=== PATIENT | male | born 1960 | race Caucasian/White ===

== ENCOUNTER 2025-02-02 18:38 | Emergency (ER) | payer MEDICARE, OTHER, SELFPAY ==
[2025-02-02] VITALS (7 sets, daily range): BP systolic 135–151; BP diastolic 78–83; BMI 36.8
--- NOTE | 2025-02-02 19:16 | ED.GENMED ---
History of Present Illness
<Sangeeta Calles PA-C - Last Filed: 02/02/25 22:42>
General
Chief Complaint: Skin Problem
Source: patient and significant other
Exam Limitations: none
Time Seen by Provider: 02/02/25 18:56
History of Present Illness
History of Present Illness:
Patient is a 64-year-old male with past medical history of ruptured brain aneurysm repaired at [facility], polycystic kidney disease status post kidney transplant in 2015 at [facility], CAD status postcardiac stenting, hypertension, hyperlipidemia, hernia
repair, who presents to the emergency department from home accompanied by his for evaluation of a rash to the bilateral lower extremities. Patient reports that the rash started as a small coin sized lesion to the right lower extremity. Over
the course of the day yesterday and today, the rash progressed on the right lower extremity and then started to affect the left lower extremity. Patient denies that it is painful or itchy. Patient has noted some bilateral lower extremity edema but
states that this has been present for a few months. He reports that he did see the primary care provider for the swelling and they were not concerned about it. Patient reports that he has never had a rash like this before. He denies any rash
anywhere else. Patient notes that he is on prednisone and tacrolimus for his transplant. He reports that he is on 81 mg of aspirin but denies any other anticoagulation. Patient denies recent fevers, chills, chest pain, shortness of breath,
abdominal pain, nausea, vomiting, change in his bowel habits, change in his urinary habits. Patient denies that he has been on his feet for longer periods of time than usual.
Past History
<Sangeeta aClles PA-C - Last Filed: 02/02/25 22:42>
Past History
ED Past Medical History: CAD, HTN, Hypercholesterolemia and Other (Subarachnoid hemorrhage with aneurysm, polycystic kidneys with kidney transplant, coronary artery disease with stent placement)
ED Past Surgical History: Cardiac and Urological
Social History
Tobacco: Non-smoker
Personal:
Living: with family
Review of Systems
<Sangeeta Calles PA-C - Last Filed: 02/02/25 22:42>
Review of Systems
Allergies reviewed?: Yes
All Other Systems: ROS reviewed and negative except as documented in HPI and ROS
Constitutional: Reports no symptoms
EENT: Reports no symptoms
Respiratory: Reports no symptoms
Cardiac: Reports no symptoms
ABD/GI: Reports no symptoms
: Reports no symptoms
Musculoskeletal: Reports no symptoms
Skin: Reports rash; Denies itching
Neurological: Reports no symptoms
Endocrine: Reports no symptoms
Hematologic/Lymphatic: Reports no symptoms
Psychiatric: Reports no symptoms
Phy Exam
<Sangeeta Calles PA-C - Last Filed: 02/02/25 22:42>
General Physical Exam
General Presentation: well appearing and no apparent distress
General Skin: warm and dry
General Habitus: normal
General Mental: alert
General Hydration: appears well hydrated
ENT Exam
ENT Exam: EOMI, pharynx normal, neck supple and normocephalic
Eye Exam
Eye Exam: PERRL, cornea clear and conjunctiva normal
Cardiovascular Exam
Cardiovascular Exam: regular rate/rhythm, no murmur, normal peripheral pulses and other (trace ankle and pedal edema)
Pulmonary Exam
Pulmonary Exam: lungs clear, no respiratory distress, no rales, no crackles, no rhonchi, no stridor, no wheezing and no cough
Gastrointestinal Exam
Gastrointestinal Exam: normal bowel sounds, non tender, soft, no organomegaly, no pulsatile mass and non distended
Neurological Exam
Neurological Exam: alert, oriented x3, no motor deficits and speech normal
Musculoskeletal Exam
Musculoskeletal Exam: full ROM and edema (mild pretibial, ankle, and pedal edema)
Skin Exam
Skin Exam: normal color, warm/dry and other (petechial rash to the bilateral lower extremities, R>L, non-blanching, no ttp, )
Psychiatric Exam
Psychiatric Exam: normal mood/affect
Course
<Sangeeta Calles PA-C - Last Filed: 02/02/25 22:42>
Orders/Labs/Results
Orders:
Orders
02/02/25 19:41
CRP [C-Reactive Protein] Urgent
Complete Blood Count/With Diff Urgent
Comprehensive Metabolic Panel Urgent
ESR [Erythrocyte Sed Rate] Urgent
02/02/25 21:22
Protein/Creat Ratio (Random) Urgent
Date Specimen was Collected: 02/02/25
Time Specimen was Collected: 19:44
Comment: ADD ON
Urinalysis Reflex To Culture Urgent
Date Specimen was Collected: 02/02/25
Time Specimen was Collected: 19:44
Urine Microscopic Reflex Cult Urgent
02/02/25 21:46
Add On- LAB Urgent
Comments:: add on
Tests Added?: urine protein/creat ratio (random)
02/02/25 22:03
US Periph Venous LOWER Ext Yash Urgent
Comment:
Reason For Exam: b/l lower extremity edema, rash
02/02/25 23:16
Prednisone [Deltasone] 60 mg PO NOW STA
Abnormal Lab Results
02/02/25 02/02/25
19:41 21:22
MPV 11.4 H fL
(7.4-10.4)
Chloride 109 H mmol/L
(98-107)
Glucose 173 H mg/dl
(70-99)
Alkaline Phosphatase 35 L U/L
(38-126)
Urine Albumin (Reflex) 1+ A
(Neg - Trace)
02/02/25 19:41
02/02/25 19:41
Vital Signs
Initial and Last Documented VS:
Initial Vital Signs
Temp Pulse Resp BP Pulse Ox
98.0 F 74 20 135/80 95
02/02/25 18:48 02/02/25 18:48 02/02/25 18:48 02/02/25 18:48 02/02/25 18:48
Last Documented Vital Signs
Temp Pulse Resp BP Pulse Ox
98.0 F 71 18 146/81 92
02/02/25 18:48 02/02/25 19:32 02/02/25 19:32 02/02/25 22:00 02/02/25 23:05
<Maximilian Jerez PA-C - Last Filed: 02/02/25 23:18>
Orders/Labs/Results
Orders:
Orders
02/02/25 19:41
CRP [C-Reactive Protein] Urgent
Complete Blood Count/With Diff Urgent
Comprehensive Metabolic Panel Urgent
ESR [Erythrocyte Sed Rate] Urgent
02/02/25 21:22
Protein/Creat Ratio (Random) Urgent
Date Specimen was Collected: 02/02/25
Time Specimen was Collected: 19:44
Comment: ADD ON
Urinalysis Reflex To Culture Urgent
Date Specimen was Collected: 02/02/25
Time Specimen was Collected: 19:44
Urine Microscopic Reflex Cult Urgent
02/02/25 21:46
Add On- LAB Urgent
Comments:: add on
Tests Added?: urine protein/creat ratio (random)
02/02/25 22:03
US Periph Venous LOWER Ext Yash Urgent
Comment:
Reason For Exam: b/l lower extremity edema, rash
02/02/25 23:16
Prednisone [Deltasone] 60 mg PO NOW STA
Abnormal Lab Results
02/02/25 02/02/25
19:41 21:22
MPV 11.4 H fL
(7.4-10.4)
Chloride 109 H mmol/L
(98-107)
Glucose 173 H mg/dl
(70-99)
Alkaline Phosphatase 35 L U/L
(38-126)
Urine Albumin (Reflex) 1+ A
(Neg - Trace)
02/02/25 19:41
02/02/25 19:41
Vital Signs
Initial and Last Documented VS:
Initial Vital Signs
Temp Pulse Resp BP Pulse Ox
98.0 F 74 20 135/80 95
02/02/25 18:48 02/02/25 18:48 02/02/25 18:48 02/02/25 18:48 02/02/25 18:48
Last Documented Vital Signs
Temp Pulse Resp BP Pulse Ox
98.0 F 71 18 146/81 92
02/02/25 18:48 02/02/25 19:32 02/02/25 19:32 02/02/25 22:00 02/02/25 23:05
<Sangeeta Calles PA-C - Last Filed: 02/02/25 22:42>
*Pulse Oximetry
SaO2: 95
Oxygen Mode of Delivery: Room air
<Maximilian Jerez PA-C - Last Filed: 02/02/25 23:18>
*Pulse Oximetry
Patient hypoxic: no
*Critical Care Note
Total Time (30-74mins, 75-104mins- exclusive of procedures): Not Applicable
<Sangeeta Calles PA-C - Last Filed: 02/02/25 22:42>
Update Note
Update Note:
64-year-old male with extensive past medical history presents to the emergency department accompanied by his from home for evaluation of a rash to his bilateral lower extremities that started yesterday. Patient reports that started on the
right but then moved to the left. Patient and also note several week history of lower extremity edema. Patient denies any pain, denies any additional symptoms today. On arrival, patient's vital signs are stable, he is afebrile. On exam,
patient is very well-appearing, he is no acute distress, he has mild lower extremity edema bilaterally with a petechial rash. Case was discussed with ED attending who also evaluated the patient. Labs were obtained and are reassuring, patient does
not have an elevation of his inflammatory markers, normal hemoglobin, normal platelet counts. Case was discussed with rheumatology, Dr. Fernandez who also reviewed images of the patient's labs. 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
vasculitis for which she would recommend a short course of 60 mg of prednisone orally or IV equivalent. I then spoke with Saira Alba, kidney facilities coordinator at [facility] who was in contact with the loom fixer on-call. They recommend
checking a urinalysis for blood, urinalysis does not demonstrate blood. They also recommend checking a urine protein/creatinine ratio. However, they state that we do not need to wait for these results and are comfortable with initiating a short
course of 60 mg of prednisone daily for 4 days. I spoke with the patient and his regarding these recommendations. They are also concerned for DVT in the patient's lower extremities, will check a Doppler. If negative, anticipate the patient
can be discharged on a short course of prednisone with close outpatient rheumatology follow-up and strict return precautions. Plan was discussed with the patient who expressed understanding and agreed.
<Maximilian Jerez PA-C - Last Filed: 02/02/25 23:18>
Update Note
Update Note:
64-year-old male with extensive past medical history presents to the emergency department accompanied by his from home for evaluation of a rash to his bilateral lower extremities that started yesterday. Patient reports that started on the
right but then moved to the left. Patient and also note several week history of lower extremity edema. Patient denies any pain, denies any additional symptoms today. On arrival, patient's vital signs are stable, he is afebrile. On exam,
patient is very well-appearing, he is no acute distress, he has mild lower extremity edema bilaterally with a petechial rash. Case was discussed with ED attending who also evaluated the patient. Labs were obtained and are reassuring, patient does
not have an elevation of his inflammatory markers, normal hemoglobin, normal platelet counts. Case was discussed with rheumatology, Dr. Fernandez who also reviewed images of the patient's labs. 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
vasculitis for which she would recommend a short course of 60 mg of prednisone orally or IV equivalent. I then spoke with aSira Alba, kidney facilities coordinator at [facility] who was in contact with the loom fixer on-call. They recommend
checking a urinalysis for blood, urinalysis does not demonstrate blood. They also recommend checking a urine protein/creatinine ratio. However, they state that we do not need to wait for these results and are comfortable with initiating a short
course of 60 mg of prednisone daily for 4 days. I spoke with the patient and his regarding these recommendations. They are also concerned for DVT in the patient's lower extremities, will check a Doppler. If negative, anticipate the patient
can be discharged on a short course of prednisone with close outpatient rheumatology follow-up and strict return precautions. Plan was discussed with the patient who expressed understanding and agreed.
11:16 PM. Assumed care of patient pending ultrasound of legs. Ultrasound negative for DVT bilaterally. Will start on prednisone for possible vasculitis. Stable for discharge
ED Attending Note
<Sangeeta Calles PA-C - Last Filed: 02/02/25 22:42>
-
Portions of this chart may have been created with voice recognition software.� Occasional wrong word or��sound alike� substitutions may have occurred due to the inherent limitations of voice recognition software.
Discharge Plan
Departure
Patient Disposition: Home (Routine Discharge)
Date of Disposition: 02/02/25
Time of Disposition: 23:17
Patient with high blood pressure during this ER visit?: Yes
Covid-19: Not Applicable
Discharge Problem:
Petechial rash, Bilateral edema of lower extremity
Instructions: Swelling, Vasculitis (DC)
Prescriptions:
New
prednisone 20 mg tablet
60 mg PO DAILY 3 Days Qty: 9 0RF
No Action
multivitamin [Daily Multiple] 1 EACH tablet
1 ea PO DAILY
acetaminophen [Pain and Fever] 325 MG tablet
650 mg PO Q8HPRN PRN (Reason: pain)
atorvastatin 20 MG tablet
20 mg PO QPM
sulfamethoxazole-trimethoprim 1 EACH tablet
1 ea PO DAILY
mycophenolate mofetil 250 MG capsule
500 mg PO BID
prednisone 5 MG tablet
5 mg PO DAILY
atenolol 25 MG tablet
12.5 mg PO DAILY
aspirin 81 MG tablet,delayed release (DR/EC)
2 tab PO DAILY
divalproex [Depakote ER] 500 MG tablet extended release 24 hr
500 mg PO .2100
divalproex [Depakote ER] 500 MG tablet extended release 24 hr
1,000 mg PO .0900
oxycodone 5 MG tablet
1 - 2 tab PO Q4HPRN PRN (Reason: pain)
fish oil-dha-epa 1 EACH capsule
4 cap PO DAILY
omeprazole 20 MG tablet,delayed release (DR/EC)
20 mg PO DAILY
tacrolimus [Astagraf XL] 1 MG capsule,extended release 24hr
10 mg PO BID
NIFEDipine
1 tab PO BID
Referrals:
Rik Fernandez DO [Consulting Staff, Rheumatology] - 02/05/25
Vikas Ramirez MD [Family Provider, Internal Medicine] - Follow up in 2-3 days
Activity Restrictions/Additional Instructions:
You were seen in the emergency department for evaluation of a rash to your legs over the past day as well was swelling of your legs over the past few weeks. While you were in the emergency department you had blood work which shows no dangerous
abnormalities. You had an ultrasound which shows no blood clot in your legs. We discussed your case with our business analyst consultant as well as your nephrology team at [facility]. They are in agreement to trial a short course of a higher dose of steroids.
Please take these as directed. Please follow-up closely with rheumatology for further evaluation and treatment. Please return to the emergency department if you develop fever greater than 100.4, chest pain, shortness of breath or difficulty
breathing, severe abdominal pain, increasing pain or swelling of the legs, or for any other worsening or concerning symptoms.
Interventions
Interventions:
*Risk Screen - Suicide Last Done: 02/02/25 19:27
*General Assessment Last Done: 02/02/25 18:48
*Neglect/Abuse Screening Last Done: 02/02/25 19:27
*ED- Fall Risk Assessment Last Done: 02/02/25 19:27
*ED COVID-19 Vaccine History Last Done: 02/02/25 19:27
ED-Skin Assessment Last Done: 02/02/25 19:27
Discharge Date and Time
Print Language: FRISIAN
[2025-02-02 19:57] LABS: Hematocrit 44.9 % (39.0-52.0); Hemoglobin 15.6 g/dL (13.0-18.0); Mean Corp Hgb Conc. 34.7 g/dL (33.0-37.0); Mean Corpuscular Volume 88.0 fL (80.0-94.0); Nucleated Red Blood Cells % 0 % (-); Platelet Count 143 10^3/uL (130-400); Red Cell Dist. Width 12.9 % (11.5-14.5)
[2025-02-02 20:11] LABS: ALT (SGPT) 30 U/L (0-50); AST (SGOT) 27 U/L (17-59); Albumin 4.7 g/dl (3.5-5.0); Alkaline Phosphatase 35 U/L (38-126); Blood Urea Nitrogen 20 mg/dl (9-20); Calcium 10.0 mg/dl (8.4-10.2); Carbon Dioxide 24 mmol/L (22-30); Chloride 109 mmol/L (98-107); Estimated Creatinine Clearance 117 ml/min; Glucose 173 mg/dl (70-99); Potassium 3.9 mmol/L (3.5-5.1); Sodium 141 mmol/L (135-145); Total Protein 7.8 g/dl (6.3-8.2); eGFR > 60.00
[2025-02-02 20:13] LABS: C-Reactive Protein < 5.00 mg/L (0.0-10.00)
[2025-02-02 21:26] LABS: Urine Character Clear (Clear)
[2025-02-02 21:38] LABS: Urine Red Blood Cell 0-2 /HPF (0-2); Urine Squamous Cell 0-2 /LPF (Few); Urine White Cell 0-2 /HPF (0-5)
[2025-02-02] MEDS: DELTASONE 60 MG PO (23:43)
== END 2025-02-02 23:48 | disposition home or self-care (01) ==
LOC: EMR 18:38
PROVIDERS: Physician Assistant Medical; EMERGENCY PHYSICIAN Emergency Medicine; FAMILY PHYSICIAN Internal Medicine
DX: R60.0 Localized edema (principal); R23.3 Spontaneous ecchymoses; I10 Essential (primary) hypertension; E78.00 Pure hypercholesterolemia, unspecified; Z79.621 Long term (current) use of calcineurin inhibitor; I25.10 Atherosclerotic heart disease of native coronary artery without angina pectoris; Z94.0 Kidney transplant status; Z95.5 Presence of coronary angioplasty implant and graft
CPT/HCPCS: 99285; 80053; 81003; 81015; 82570; 84156; 85025; 85652; 86140; 93970

== ENCOUNTER 2025-02-07 18:57 | Inpatient (IN) | payer MEDICARE, OTHER, SELFPAY ==
[2025-02-07] VITALS (12 sets, daily range): BP systolic 66–187; BP diastolic 38–97; BMI 22.2; BMI 34.9
[2025-02-07] MEDS: TYLENOL 1000 MG PO (15:05)
[2025-02-07] MEDS: NSS 1000 IV ×2 (15:05→20:45)
[2025-02-07 15:11] LABS: ALT (SGPT) 29 U/L (0-50); AST (SGOT) 23 U/L (17-59); Albumin 4.6 g/dl (3.5-5.0); Alkaline Phosphatase 44 U/L (38-126); Blood Urea Nitrogen 17 mg/dl (9-20); Calcium 9.1 mg/dl (8.4-10.2); Carbon Dioxide 26 mmol/L (22-30); Chloride 103 mmol/L (98-107); Estimated Creatinine Clearance 78 ml/min; Glucose 138 mg/dl (70-99); Potassium 3.5 mmol/L (3.5-5.1); Sodium 136 mmol/L (135-145); Total Protein 7.5 g/dl (6.3-8.2); eGFR > 60.00
[2025-02-07 15:17] LABS: COVID-19 Antigen Negative (Negative)
[2025-02-07 15:19] LABS: Hematocrit 49.3 % (39.0-52.0); Hemoglobin 17.0 g/dL (13.0-18.0); Mean Corp Hgb Conc. 34.5 g/dL (33.0-37.0); Mean Corpuscular Volume 88.2 fL (80.0-94.0); Nucleated Red Blood Cells % 0 % (-); Red Cell Dist. Width 13.0 % (11.5-14.5)
[2025-02-07 15:22] LABS: Urine Character Clear (Clear)
--- NOTE | 2025-02-07 15:50 | ED.GENMED ---
History of Present Illness
General
Chief Complaint: Fever
Time Seen by Provider: 02/07/25 14:36
History of Present Illness
History of Present Illness:
65-year-old male with history of end-stage renal disease status post kidney transplant in 2014 presents the emergency department for evaluation of a fever for the past day. Patient was seen in this emergency department 4 days ago for a vasculitic
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
course of 60 mg of prednisone. He completed this yesterday. He reports general malaise and fatigue as well as body aches, denies chest pain, shortness of breath, nausea, vomiting, or neck pain. He notes that he has had decreased urination and
urinary dribbling. He is concerned his renal function may be worsening. He does reside near the [facility] and spends a great deal of time outdoors
Past History
Past History
ED Past Medical History: CAD, HTN, Hypercholesterolemia and Other (Subarachnoid hemorrhage with aneurysm, polycystic kidneys with kidney transplant, coronary artery disease with stent placement)
ED Past Surgical History: Cardiac and Urological
Social History
Tobacco: Non-smoker
Personal:
Living: with family
Review of Systems
Review of Systems
Allergies reviewed?: Yes
All Other Systems: ROS reviewed and negative except as documented in HPI and ROS
Phy Exam
Physical Exam
Physical Exam:
GEN: Well appearing, NAD, WDWN
HEENT: Oral mucosa moist, no scleral icterus
Cardiac: Regular rate and rhythm, no murmur
Lung: No respiratory distress, no tachypnea, lungs clear to auscultation
Abdomen: Soft, grossly nontender
MSK: No gross deformity or injuries
Skin: Good color, no pallor or jaundice, no rashes
Neuro: AO x3, moves all extremities freely
Psych: Calm, cooperative
Sepsis
Sepsis Screening
Sepsis Assessment: Sepsis Ruled Out
Sepsis Screen
Sepsis Screen: Sepsis Ruled Out
Date: 02/07/25
Time: 16:39
Course
Orders/Labs/Results
Orders:
Orders
02/07/25 14:19
Cardiac Monitoring- Treatment ONCE
02/07/25 14:37
Blood Culture Q20M
INDU Source: Blood/Venous
Specimen Description:
Comment: Urgent from separate sites. If patient screens positive for possible sepsis
Blood Culture Q20M
INDU Source: Blood/Venous
Specimen Description:
Comment: Urgent from separate sites. If patient screens positive for possible sepsis
02/07/25 14:38
Complete Blood Count/With Diff Urgent
Comprehensive Metabolic Panel Urgent
Lactic Acid Q4H
Comment: ON ICE, CANCEL 2ND ORDER IF FIRST LACTIC ACID LEVEL <2
02/07/25 14:53
COVID-19 Antigen Urgent
Source: Nasal Swab
Influenza A+B Rapid Molecular Urgent
INDU Source: Nasal Swab
Specimen Description:
02/07/25 14:56
0.9% Sodium Chloride 1000 ml [Nss] 1,000 ml IV BOLUS
Acetaminophen [Tylenol] 1,000 mg PO NOW STA
02/07/25 14:57
CR Chest - 2 Views Urgent
Comment:
Reason For Exam: fever
02/07/25 15:14
Urinalysis Reflex To Culture Urgent
Date Specimen was Collected: 02/07/25
Time Specimen was Collected: 15:11
Urine Microscopic Reflex Cult Urgent
Urine Culture Urgent
INDU Source: U
Specimen Description:
Date Specimen was Collected: 02/07/25
Time Specimen was Collected: 15:11
02/07/25 15:46
Add On- LAB Urgent
Tests Added?: peripheral smear
02/07/25 15:52
CefTRIAXone [Rocephin] 1,000 mg IV NOW STA
02/07/25 16:02
Anaplasma phagocytophila IgG/M [S] Urgent
Ehrlichia chaffeensis Ab Panel [S] Urgent
Lyme Progressive Urgent
Abnormal Lab Results
02/07/25 02/07/25
14:38 15:14
Plt Count 103 L D 10^3/uL
(130-400)
MPV 11.2 H fL
(7.4-10.4)
Absolute Neuts (auto) 6.8 H 10^3/uL
(1.4-6.5)
Absolute Lymphs (auto) 0.6 L 10^3/uL
(1.2-3.4)
Absolute Monos (auto) 0.9 H 10^3/uL
(0.1-0.6)
Neutrophils % 81.4 H %
(42.2-75.2)
Lymphocytes % 6.7 L %
(20.5-51.1)
Monocytes % 11.3 H %
(1.7-9.3)
Glucose 138 H mg/dl
(70-99)
Total Bilirubin 2.1 H mg/dl
(0.2-1.3)
Ur Occult Blood Reflex 1+ A
(Negative)
Leukocyte Esterase Rfl 1+ A
(Negative)
Urine RBC 3-6 A /HPF
(0-2)
Urine Bacteria (Reflex) Few A
(Negative)
Urine Albumin (Reflex) 2+ A
(Neg - Trace)
02/07/25 14:38
02/07/25 14:38
Vital Signs
Initial and Last Documented VS:
Initial Vital Signs
Temp Pulse Resp Pulse Ox
100.4 F H 86 20 93
02/07/25 14:17 02/07/25 14:17 02/07/25 14:17 02/07/25 14:17
Last Documented Vital Signs
Temp Pulse Resp BP Pulse Ox
103.9 F H 68 20 139/75 93
02/07/25 14:40 02/07/25 16:15 02/07/25 16:15 02/07/25 16:00 02/07/25 16:15
MDM/Problems Addressed
MDM/Problems Addressed:
Source of fever is not yet clear however as he is immunocompromised we will admit for empiric antibiotics and further monitoring. Will send broad tickborne panel given his potential exposure. He is clinically well with no signs of renal dysfunction
*Pulse Oximetry
SaO2: 93
Oxygen Mode of Delivery: Room air
Patient hypoxic: no
*Critical Care Note
Total Time (30-74mins, 75-104mins- exclusive of procedures): Not Applicable
ED Attending Note
-
Portions of this chart may have been created with voice recognition software.� Occasional wrong word or��sound alike� substitutions may have occurred due to the inherent limitations of voice recognition software.
Discharge Plan
Departure
Patient Disposition: Admit
Date of Disposition: 02/07/25
Time of Disposition: 15:54
Admit to: Med/Surg
Presentation/result/management discussed w/ accepting MD/DO: Hospitalist
Discharge Problem:
Fever of unknown origin (FUO), Immunocompromised
Prescriptions:
No Action
atorvastatin [Lipitor] 20 mg Tablet
20 mg PO QPM
prednisone 5 mg Tablet
5 mg PO DAILY
Theragen Tablet
1 tab PO DAILY
aspirin 81 mg Tablet,Delayed Release (Dr/Ec)
81 mg PO DAILY
nifedipine [Nifedical XL] 60 mg Tablet Extended Release 24hr
60 mg PO DAILY
omeprazole 20 mg Capsule,Delayed Release(Dr/Ec)
20 mg PO DAILY
tacrolimus [Prograf] 1 mg Capsule
4 mg PO DAILY
tacrolimus [Prograf] 1 mg Capsule
3 mg PO QPM
cholecalciferol (vitamin D3) [Vitamin D3] 125 mcg (5,000 unit) Tablet
125 mcg PO DAILY
omega [id number] oil [Fish Oil] 1,000 (120-180) mg Capsule
1 cap PO QID
Rx Instructions:
1620mg qid
Interventions
Interventions:
*Risk Screen - Suicide Last Done: 02/07/25 14:17
*General Assessment Last Done: 02/07/25 14:17
*Neglect/Abuse Screening Last Done: 02/07/25 14:17
*ED- Fall Risk Assessment Last Done: 02/07/25 14:17
*ED COVID-19 Vaccine History Last Done: 02/07/25 14:17
ED- Neurological Assessment Last Done: 02/07/25 14:17
ED-Skin Assessment Last Done: 02/07/25 14:17
Discharge Date and Time
Print Language: MONGOLIAN
[2025-02-07 16:05] LABS: Platelet Count 103 10^3/uL (130-400)
[2025-02-07] MEDS: ROCEPHIN 1000 MG IV (16:15)
--- NOTE | 2025-02-07 17:13 | HPS.HSE ---
Addendum entered and electronically signed by Michelle Child MD 02/07/25 19:34:
This is an addendum to H&P written by Heaven Crandall on 02/07/2025. �Patient seen and examined independently with resident.
65-year-old male past medical history of polycystic kidney disease status post renal transplant with AV fistula not in use, anxiety, hypertension, hyperlipidemia, ruptured brain aneurysm status post repair in 2005, CAD status post stents, left
hearing loss presenting with fever since last night/chills with lower back pain improves with laying flat.
4 days ago was here for rash and bilateral lower extreme edema. �ER spoke with rheumatology on-call who thought this was leukocytoclastic vasculitis and recommended prednisone. �He also spoke with transplant washer blanket at [facility] who agreed with
steroids. �Venous ultrasound negative at that time.
Vital signs show temperature 103.9. �No neurological symptoms associated with the back pain. �No murmur on examination.
Fever unclear etiology.
Labs show mild elevation bilirubin 2.1. �Mild thrombocytopenia platelets of 103
Urinalysis negative. �Chest x-ray negative.
Check blood cultures, check CMV and EBV. �Check Lyme, Babesia smear.
IV fluids. �Vancomycin/cefepime empirically.
Original Note:
Family Physician
-
Family Physician: Vikas Ramirez
Chief Complaint
-
Fever
History of Present Illness
This is a 65-year-old male with past medical history of polycystic kidney disease s/p renal transplant at [facility] 07/2014, anxiety, hypertension, hyperlipidemia, ruptured brain aneurysm s/p repair 2005, CAD s/p cardiac stenting, left hearing loss who
presents to [facility] for evaluation of fever. Patient reports fever started last night. He had reported temperature 102.7 �F. In addition he admits to chills. Reports fever was continuous along with night sweats chills and rigors. Fever continued
into this morning prompting his to bring patient to the ED for evaluation. The patient denies sick contacts, he denies recent travels. He denies tick exposure/bitten by tick. He reports he has 2 dogs at home but no cats. He denies any
ongoing rash, mouth ulcers. He denies cough, congestion, dysuria, diarrhea, headaches, photophobia, neck stiffness. Patient reports he has noticed decreased urination and urine dribbling but denies pain with urination, urgency, frequency, blood in
urine. He denies unintentional weight loss. Patient reports ongoing lower back pain that started last night. He reports the pain is a 4 out of 10 that improves with laying flat. Denies neurological symptoms.
Pertinent to patient's history, patient with history of polycystic kidney disease status post renal transplant. He follows [facility] washer blanket yearly. Patient currently has an AV fistula placed in his left arm in 2014 but was never used
for dialysis due to his donating a kidney to patient. Denies pain, redness or swelling at fistula site
In addition to his history, patient was recently at our ED 02/02 for ongoing rash on bilateral lower extremity. At that time Rash was considered vasculitic rash after review with endocrinology and [facility] transplant team and he was treated with a
short course of 60 mg of prednisone. The patient reports he completed the short course yesterday and pupuric rash resolved. Patient Denies history of rheumatological condition, denies artificial valves.
Medical History
Past Medical History
Past Medical History: Reports Other (CAD, hypertension, hypercholesterolemia, subarachnoid hemorrhage with aneurysm, polycystic kidney disease with kidney transplant, anxiety)
Past Surgical History: Reports Cardiac, Urological and Other
Social History
Tobacco: Non-smoker
Alcohol: Occasional
Drug: None
Personal:
Living: With Family
Family History
Family History: Not pertinent
Allergies / Home Medications
Allergies reflects when Allergies were last updated in [facility].
Home Medications with original date entered in [facility]
Allergy/Medication List:
Allergies
Allergy/AdvReac Type Severity Reaction Status Date / Time
NKA - No Known Allergies Allergy Unknown Uncoded 02/02/25 18:48
Home Medications
aspirin 81 mg tablet,delayed release 81 mg PO DAILY 02/07/25
atorvastatin 20 mg tablet (Lipitor) 20 mg PO QPM 02/07/25
cholecalciferol (vitamin D3) 125 mcg (5,000 unit) tablet (Vitamin D3) 125 mcg PO DAILY 02/07/25
nifedipine 60 mg tablet,extended release 24 hr 60 mg PO DAILY 02/07/25
omega 1-oov-fbb-fish oil 1,000 mg (120 mg-180 mg) capsule (Fish Oil) 1 cap PO QID 02/07/25
omeprazole 20 mg capsule,delayed release 20 mg PO DAILY 02/07/25
prednisone 5 mg tablet 5 mg PO DAILY 02/07/25
tacrolimus 1 mg capsule, immediate-release (Prograf) 3 mg PO QPM 02/07/25
tacrolimus 1 mg capsule, immediate-release (Prograf) 4 mg PO DAILY 02/07/25
therapeutic multivitamin 1 tab PO DAILY 02/07/25
Review of Systems
-
History Source: Patient
A 12 point ROS was completed and negative except as noted: Yes
Constitutional: Reports Fever, Night Sweats and Chills
EENT: Denies Mouth Swelling
Respiratory: Denies Cough, Hemoptysis or Trouble Breathing
Cardiac: Reports No Symptoms
Abdomen/GI: Reports No Symptoms
Physical Exam
Vital Signs
Vital Signs
Temp Pulse Resp BP Pulse Ox
103.9 F H 68 20 139/75 93
02/07/25 14:40 02/07/25 16:15 02/07/25 16:15 02/07/25 16:00 02/07/25 16:15
Physical Exam
General: Well Developed, Fever, Chills and Sweats
HEENT: NormoCephalic and Moist mucous membranes
Respiratory: Clear; No Wheezes, Rales or Rhonchi
Cardiac: S1/S2 and Regular Rhythm; No Murmur or Rub
GI: Soft, Non Tender, Non Distended and Normal Bowel Sounds
Musculoskeletal: No Edema and Other (lower back non tender to palpation. )
Neuro: Awake, Alert, Oriented and AO x 3
Psych: Calm
Laboratory Results
-
02/07/25 14:38
02/07/25 14:38
Laboratory Results
Lactic Acid Cancelled 02/07/25 18:30
Total Bilirubin 2.1 mg/dl (0.2-1.3) H 02/07/25 14:38
AST 23 U/L (17-59) 02/07/25 14:38
ALT 29 U/L (0-50) 02/07/25 14:38
Alkaline Phosphatase 44 U/L (38-126) 02/07/25 14:38
Impression/Plan
-
Assessment/plan
#Acute febrile illness in immunocompromised patient
#History of kidney transplant on immunosuppressive therapy
-Did not meet SIRS criteria on admission
-? Etiology of fever
-CXR- No evidence of active cardiopulmonary disease.
-Patient with recent high-dose prednisone use and chronic tacrolimus use
-blood culture x2 obtained in the ED
-Urinalysis negative, urine culture pending
-Administered ceftriaxone in ED
-Start empiric antibiotics with cefepime plus vancomycin
-MRSA screening
-Check tickborne illness including babesiosis, Lyme pending
-Check CMV, EBV PCR
-Consider ID consult in the a.m.
#Thrombocytopenia
-Likely reactive vs drug-induced
-Trend CBC
-Check Blood smear parasite, tickborne illness
#Leukocytoclastic vasculitis
-No evidence of DVT on Ultrasound 4 days ago
-Rash reported 4 days ago
-Resolved with short course 60mg prednisone use
#CAD s/p stent
-Denies acute chest pain
-Continue aspirin
#Hyperlipidemia
-Continue atorvastatin
#Hypertension
-Continue nifedipine
#GERD
-Continue Omeprazole
#ESRD s/p renal transplant 2014
-Continue prednisone 5 mg p.o. daily, tacrolimus
-Cre at baseline
CODE STATUS full code
DVT prophylaxis Heparin SQ
--- NOTE | 2025-02-07 20:29 | PHA.VAN.IN ---
Assessment
- Assessment
Renal Function: Appears similar to baseline (02/02/25 SCR = 0.9)
Concomitant Antimicrobials: CEFEPIME
- Previous Dosing Experience
Previous Regimen: NONE
AUC Dosing Plan
- Dosing Variables
Dosing Weight (kg): 123.1
Dosing CrCl (ml/min): 100
Vd coefficient (L/kg): 0.6
- Empiric Dosing
Initial / Loading Dose: 2GM
Maintenance Regimen: 1500MG IV Q12H
Estimated AUC (mcg*h/mL): 495
Estimated Peak (mcg*h/mL): 31.3
Estimated Trough (mcg/ml): 12.5
Estimated Half Life (H): 7.9
Pharmacokinetics Vancomycin I
- -
Patient Age: 65
Patient Sex: Male
Vancomycin Day #: 1
Indication: Other
Requesting Provider: ADINA
Height / Weight:
Height 6 ft 2 in
Actual Weight 123.105 kg
Pertinent Past Medical History: POLYCYSTIC KIDNEY DX; KIDNEY TRANSPLANT
- Vital Signs / Lab Results
Temp Pulse Resp BP Pulse Ox
99.0 F 60 18 152/70 94
02/07/25 20:13 02/07/25 20:13 02/07/25 20:13 02/07/25 20:13 02/07/25 20:13
Lab Results - Hematology
02/07/25
14:38
WBC 8.3
Lab Results - Chemistry
02/07/25
14:38
BUN 17
Creatinine 1.0
Estimated Creat Clear 78
Albumin 4.6
02/07/25 02/07/25
14:38 18:30
Lactic Acid 1.3 Cancelled
Lab Results - Urine
02/07/25
15:14
Urine Nitrite (Reflex) Negative
Leukocyte Esterase Rfl 1+ A
Urine WBC (Reflex) 6-10
Ur Squamous Epith Cells 3-5
Urine Bacteria (Reflex) Few A
Microbiology Results
02/07/25 14:53 Influenza Types A & B (NELLY) - Final
Nasal Swab Negative for Influenza A & B, NAAT
Negative results must be combined with clinical observations
and patient history.
Nucleic Acid Amplification test (NAAT)performed on the
[employer] platform.
[2025-02-07] MEDS: VANCOCIN 540 MG IV (20:45)
[2025-02-07] MEDS: PROGRAF 3 MG PO (22:28)
[2025-02-07] MEDS: HEPARIN 5000 UNITS SC (22:28)
[2025-02-07] MEDS: STERILE WATER FOR INJECTION 10 ML IV (22:29)
[2025-02-07] MEDS: MAXIPIME 1000 MG IV (22:29)
[2025-02-07] MEDS: TYLENOL 650 MG PO (22:29)
[2025-02-08] MEDS: DILAUDID 0.25 MG IV (03:41)
[2025-02-08] MEDS: STERILE WATER FOR INJECTION 10 ML IV ×4 (03:41→22:06)
[2025-02-08] MEDS: MAXIPIME 1000 MG IV ×4 (03:41→22:07)
[2025-02-08] MEDS: VANCOCIN 530 MG IV ×2 (05:59→17:17)
[2025-02-08 06:17] VITALS: BMI 35.3
[2025-02-08 07:38] LABS: Hematocrit 44.4 % (39.0-52.0); Hemoglobin 15.3 g/dL (13.0-18.0); Mean Corp Hgb Conc. 34.5 g/dL (33.0-37.0); Mean Corpuscular Volume 87.7 fL (80.0-94.0); Nucleated Red Blood Cells % 0 % (-); Red Cell Dist. Width 13.1 % (11.5-14.5)
[2025-02-08] MEDS: PROCARDIA XL (EXTENDED RELEASE) 60 MG PO (07:45)
[2025-02-08] MEDS: LIDOCAINE 4% PATCH 1 PATCH TOPICAL (07:45)
[2025-02-08] MEDS: ASPIR LOW (ENTERIC COATED) 81 MG PO (07:46)
[2025-02-08] MEDS: HEPARIN 5000 UNITS SC ×2 (07:46→20:51)
[2025-02-08] MEDS: PROTONIX 40 MG PO (07:46)
[2025-02-08] MEDS: THERAGRAN 1 TABLET PO (07:46)
[2025-02-08] MEDS: TYLENOL 650 MG PO ×3 (07:46→22:08)
[2025-02-08] MEDS: DELTASONE 5 MG PO (07:46)
[2025-02-08 07:50] VITALS: BP 152/87
[2025-02-08 08:25] LABS: ALT (SGPT) 24 U/L (0-50); AST (SGOT) 25 U/L (17-59); Albumin 3.5 g/dl (3.5-5.0); Alkaline Phosphatase 34 U/L (38-126); Blood Urea Nitrogen 16 mg/dl (9-20); Calcium 8.5 mg/dl (8.4-10.2); Carbon Dioxide 21 mmol/L (22-30); Chloride 107 mmol/L (98-107); Estimated Creatinine Clearance > 125 ml/min; Glucose 148 mg/dl (70-99); Magnesium 1.8 mg/dl (1.6-2.3); Potassium 3.4 mmol/L (3.5-5.1); Sodium 135 mmol/L (135-145); Total Protein 6.2 g/dl (6.3-8.2); eGFR > 60.00
[2025-02-08 08:42] LABS: Platelet Count 79 10^3/uL (130-400)
[2025-02-08] MEDS: PROGRAF 4 MG PO (10:30)
--- NOTE | 2025-02-08 12:56 | W.PN.HOSP.TC ---
Today's Communication/Plan
-
see outlined plan
Assessment / Plan
Assessment / Plan
Assessment:
Enterobacter bacteremia
Immunocompromised patient (renal transplant, prednisone therapy, tacrolimus therapy)
- unclear source, but could be related to skin changes with possible vasculitis
- UTI without evidence of infection; check culture
- check CT chest/abdomen/pelvis with PO/IV contrast
- follow cultures, tickborne illness testing
- continue empiric Cefepime
- ID consulted
Acute back pain
- no fall/trauma, no alarm signs
- CT L spine
- prn morphine
Acute Thrombocytopenia
- likely reactive to sepsis
- monitor counts
ESRD s/p renal transplant 2014
- hold Prednisone; add hydrocortisone 50mg q12h
- continue Tacro and check levels
- Nephrology consult
- IVF prophylaxis with contrast
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
- diagnosed in ER 4 days after telephone consultation with rheumatology
- s/p 4 day prednisone course - with improvement
- holding steroids due to bacteremia
- OP Rheum f/u
CAD s/p stent
- continue aspirin
Hyperlipidemia
- continue atorvastatin
Essential Hypertension
- continue nifedipine
GERD
- continue Omeprazole
Hypokalemia
DVT ppx: SC Heparin
Code: Full
Anticipated Discharge: > 48 hours
Subjective/Interval History
-
Date of Service: February 08, 2025
patient reports back pain from laying in bed for three days, denies bowel/bladder incontinence, leg weakness. Denies trauma
reports leg lesions improving
denies any UTI symptoms or bowel symptoms
found to have Enterobacter bacteremia
Objective Data
-
Labs:
Laboratory Results
02/08/25
06:32
WBC 10.4
Hgb 15.3
Hct 44.4
Plt Count 79 L D
Sodium 135
Potassium 3.4 L
Chloride 107
Carbon Dioxide 21 L
BUN 16
Creatinine 0.8
Glucose 148 H
Calcium 8.5
Total Bilirubin 2.5 H
AST 25
ALT 24
Alkaline Phosphatase 34 L
Vital Signs:
Vital Signs
Temp Pulse Resp BP Pulse Ox
97.8 F 79 20 152/87 99
02/08/25 11:55 02/08/25 07:50 02/08/25 07:50 02/08/25 07:50 02/08/25 07:50
I&O
02/07/25 02/08/25 02/09/25
06:59 06:59 06:59
Output Total 450 / 450
Balance -450 / -450
Physical Exam
-
General: No Apparent Distress
HEENT: Normocephalic and Atraumatic
Respiratory: Clear to Auscultation; Negative Wheezes
Cardiac: Regular Rhythm and S1/S2
GI: Soft and Nontender
Genito-urinary: No Costovertebral Tender
Neuro: AO x 3
Hematologic / Lymphatic: No Lymphadenopathy
Psych: Calm
Data Reviewed
-
Total Time Spent with Patient (in minutes): 44
Labs: Labs Reviewed by me
[2025-02-08] MEDS: OMNIPAQUE 50 ML PO (13:42)
[2025-02-08] MEDS: NSS IV ×2 (14:46→14:53)
[2025-02-08] MEDS: SOLU-CORTEF 50 MG IV ×2 (14:50→22:07)
[2025-02-08] MEDS: NSS 1000 IV (14:54)
--- NOTE | 2025-02-08 14:56 | CM ---
Patient seen at bedside
IA completed
Dx: fever in immunocompromised
PMH: polycystic kidney disease status post renal transplant with AV fistula not in use, anxiety, hypertension, hyperlipidemia, ruptured brain aneurysm status post repair in 2005, CAD status post stents, left hearing loss
Patient lives with his in a 2 story home, 3 [address], 16 steps to bedroom/bathroom, powder room on 1st floor
PLOF: Independent
DME: CPAP (does not recall vendor)
Has had VN in past and has had Matt Crowder outpatient PT in past
Denies insecurities
PCP: Cyrus Ramirez
Pharmacy: [facility], [facility]
PLAN: Home, no needs anticipated, when stable
[2025-02-08 15:06] LABS: Lyme Antibody Screen, EIA Negative (Negative)
[2025-02-08 15:27] VITALS: BP 121/69
--- NOTE | 2025-02-08 16:02 | PHA.VAN.FU ---
Vancomycin Assessment / Plan
- Assessment
Renal Function: Stable
WBC's are: WNL
In the past 24 hrs, patient has been: Afebrile
Concomitant Antimicrobials: cefepime
- Dosing Plan
Continue: Vanc 1500mg Q12H
- Monitoring Plan
No level(s) ordered at this time: consider levels in next few days
- Follow Up
Pharmacy will continue to follow.
Vancomycin Follow UP
- -
Patient Age: 65
Patient Sex: Male
Vancomycin Day #: 2
Indication: Other
Requesting Provider: Dr. Crandall (resident)
Pertinent Antimicrobial Allergies:
NKDA
Height / Weight:
Height 6 ft 2 in
Actual Weight 124.466 kg
Pertinent Past Medical History: ESRD s/p transplant 2014
- Vital Signs / Lab Results
Temp Pulse Resp BP Pulse Ox
98 F 70 16 121/69 97
02/08/25 15:27 02/08/25 15:27 02/08/25 15:27 02/08/25 15:27 02/08/25 15:27
Lab Results - Hematology
02/07/25 02/08/25
14:38 06:32
WBC 8.3 10.4
Lab Results - Chemistry
02/07/25 02/08/25
14:38 06:32
BUN 17 16
Creatinine 1.0 0.8
Estimated Creat Clear 78 > 125
Albumin 4.6 3.5
02/07/25 02/07/25
14:38 18:30
Lactic Acid 1.3 Cancelled
Lab Results - Urine
02/07/25
15:14
Ur Squamous Epith Cells 3-5
Microbiology Results
02/07/25 14:37 Blood Culture - Preliminary
Blood/Venous No Growth in 24 hours- Final report to follow
02/07/25 22:23 Blood Parasites Smear - Final
Blood/Venous
02/07/25 15:14 Urine Culture - Final
Urine No Significant Growth
02/07/25 14:37 Blood Culture - Preliminary
Blood/Venous Enterobacter cloacae complex
Gram Stain - Preliminary
02/07/25 14:53 Influenza Types A & B (NELLY) - Final
Nasal Swab Negative for Influenza A & B, NAAT
Negative results must be combined with clinical observations
and patient history.
Nucleic Acid Amplification test (NAAT)performed on the
[employer] platform.
[2025-02-08] MEDS: PROGRAF 3 MG PO (17:17)
[2025-02-08] MEDS: LIPITOR 20 MG PO (17:17)
--- NOTE | 2025-02-08 17:39 | CON.ID ---
Consultation
-
Date/Time Consultation Requested: 02/08/2025 1238
Date/Time Consultation Performed: 02/08/2025 1722
Requesting Provider: Dr. Becker
Performing Provider: Dr. Lacy
Reason for Consultation: Fevers
Chief Complaint / Past History
History of Present Illness
Tam Dyer is a 65-year-old man with a significant past medical history of ESRD s/p renal transplant being evaluated at the request of Dr. Becker regarding fever and bacteremia. History is obtained from chart review, along with patient
interview.
The patient presented to [facility] on 02/02/25 with complaints of bilateral lower extremity rash. After discussing the case with Rheumatology, the patient was prescribed a short course of prednisone for potential leukocytoclastic vasculitis
and the patient was discharged home.
Patient presents back to the ER on 02/07 secondary to reported fevers. The patient recalls that he had been enjoying TV with his , but when he went upstairs to bed he developed the acute onset of fevers and chills that persisted through the
night. He also noted myalgias. He came to the emergency room, where he was found to have fever to 103.9 (rectal). He was started on empiric antibiotics, and Infectious Diseases is asked to comment upon further antibiotic management.
The patient currently reports that he is feeling better. He denies any headaches. He denies any shortness of breath or cough. He denies any abdominal pain, nausea, vomiting or diarrhea. No dysuria. He notes that the rash on the lower
extremities has resolved.
No recent travel. No tick exposure. 2 dogs at home.
Past History
Additional Past Medical History:
ESRD 2*polycystic kidney disease; s/p transplant
CVA (ruptured brain aneurysm; 2005)
CAD
HLD
Anxiety
Additional Past Surgical History:
Renal transplant
Allergy History:
No Known Allergies Allergy (Verified 02/07/25 20:09)
Medications Reviewed: Yes
Current Antibiotics:
Cefepime 1 gm IV q.6 hours
Vancomycin
Social History
Tobacco: Non-Smoker
Alcohol: Occasional
Drug: None
Personal:
Living: With Family
Employment: Employed
Family History
Family History: Not Pertinent
Review of Systems
Vital Signs
Temp Pulse Resp BP Pulse Ox
98 F 70 16 121/69 97
02/08/25 15:27 02/08/25 15:27 02/08/25 15:27 02/08/25 15:27 02/08/25 15:27
Physical Exam
Physical Exam
Constitutional: No Acute Distress, Comfortable and Non-toxic
Eyes: No Conjunctival Hemorrhage and Sclera Anicteric
Oral: No Thrush and No Ulcers
Cardiovascular: Regular Rate and S1/S2; Negative S3/S4
Pulmonary: Clear; Negative Wheezes, Rales or Rhonchi
Gastrointestinal: Soft, Non Tender, Non Distended and Normal Bowel Sounds
Extremities: Negative Edema, Cyanosis or Erythema
Skin: Warm, Dry and Rash (? faint LE rash)
Neurological: Awake and Alert
Psychological: Calm
Lab / Diagnostic Study Results
02/08/25 06:32
02/08/25 06:32
Abs Immat Gran (auto) 0.0 10^3/uL (0-0.05) 02/08/25 06:32
Absolute Neuts (auto) 8.8 10^3/uL (1.4-6.5) H 02/08/25 06:32
Absolute Lymphs (auto) 0.4 10^3/uL (1.2-3.4) L 02/08/25 06:32
Absolute Monos (auto) 1.0 10^3/uL (0.1-0.6) H 02/08/25 06:32
Absolute Basos (auto) 0.0 10^3/uL (0-0.2) 02/08/25 06:32
Immature Gran % 0.3 % (0-0.5) 02/08/25 06:32
Neutrophils % 84.8 % (42.2-75.2) H 02/08/25 06:32
Lymphocytes % 4.1 % (20.5-51.1) L 02/08/25 06:32
Monocytes % 10.0 % (1.7-9.3) H 02/08/25 06:32
Eosinophils % 0.4 % (0-6) 02/08/25 06:32
Basophils % 0.4 % (0-2) 02/08/25 06:32
Lactic Acid Cancelled 02/07/25 18:30
Ur Squamous Epith Cells 3-5 /LPF (Few) 02/07/25 15:14
Microbiology Results
Micro:
02/07/25 14:37 Blood Culture - Preliminary
Blood/Venous No Growth in 24 hours- Final report to follow
02/07/25 22:23 Blood Parasites Smear - Final
Blood/Venous no blood parasites seen
02/07/25 15:14 Urine Culture - Final
Urine No Significant Growth
02/07/25 14:37 Blood Culture - Preliminary
Blood/Venous Enterobacter cloacae complex
Gram Stain - Preliminary
02/08/25 06:32 Cytomegalovirus Culture - Pending
Blood/Venous
02/07/25 21:07 MRSA Screen - Pending
Nose
02/07/25 14:53 Influenza Types A & B (NELLY) - Final
Nasal Swab Negative for Influenza A & B, NAAT
Negative results must be combined with clinical observations
and patient history.
Nucleic Acid Amplification test (NAAT)performed on the
[employer] platform.
Imaging:
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 Mild distention of the renal pelvis without caliectasis or evidence to suggest obstructive uropathy. Ureter is normal in caliber. No perinephric soft tissue stranding or
perinephric fluid collection. Relatively homogeneous nephrogram. Small midpole cyst measuring 10 mm. Additional subcentimeter cyst at the anteromedial and medial margins. No ascites or focal collection/abscess. No inflammatory soft tissue
stranding. Unremarkable urinary bladder. No adenopathy.
Assessment / Plan
Enterobacter bacteremia
- source unclear. ?Biliary ?urinary
Fevers
Chills
Thrombocytopenia
Immunocompromised secondary to meds
Hx renal transplant
ESRD 2*polycystic kidney disease; s/p transplant
CVA (ruptured brain aneurysm; 2005)
CAD
HLD
Anxiety
Recommendations:
Continue with empiric cefepime.
Creatinine clearance is normal; no need for dose reduction.
Discontinue further vancomycin.
Await further culture data (sensitivities) to guide further antimicrobial selection and de-escalation.
Monitor white count and temperature curve. Repeat blood cultures for temperature greater than 101 degrees.
Further recommendations as additional data is returned.
[2025-02-08 19:00] VITALS: BP 124/66
[2025-02-08] MEDS: REMOVE LIDOCAINE PATCH 1 PATCH REMOVE (20:51)
[2025-02-08 23:00] VITALS: BP 133/68
--- NOTE | 2025-02-09 03:21 | PTCARENOTE ---
Oral care was not performed on patient because he stated that it was his preference to brush his teeth in the morning.
[2025-02-09] MEDS: NSS 1000 IV ×2 (04:05→13:35)
[2025-02-09] MEDS: STERILE WATER FOR INJECTION 10 ML IV ×4 (04:05→21:09)
[2025-02-09] MEDS: MAXIPIME 1000 MG IV ×4 (04:05→21:09)
[2025-02-09 05:02] VITALS: BMI 35.8
[2025-02-09 07:00] VITALS: BP 122/59
[2025-02-09 08:59] LABS: Hematocrit 42.9 % (39.0-52.0); Hemoglobin 14.7 g/dL (13.0-18.0); Mean Corp Hgb Conc. 34.3 g/dL (33.0-37.0); Mean Corpuscular Volume 88.5 fL (80.0-94.0); Nucleated Red Blood Cells % 0 % (-); Platelet Count 71 10^3/uL (130-400); Red Cell Dist. Width 13.2 % (11.5-14.5)
[2025-02-09 09:03] LABS: Blood Urea Nitrogen 18 mg/dl (9-20); Calcium 8.6 mg/dl (8.4-10.2); Carbon Dioxide 23 mmol/L (22-30); Chloride 110 mmol/L (98-107); Estimated Creatinine Clearance 114 ml/min; Glucose 163 mg/dl (70-99); Potassium 4.0 mmol/L (3.5-5.1); Sodium 139 mmol/L (135-145); eGFR > 60.00
[2025-02-09] MEDS: ASPIR LOW (ENTERIC COATED) 81 MG PO (09:28)
[2025-02-09] MEDS: THERAGRAN 1 TABLET PO (09:29)
[2025-02-09] MEDS: PROGRAF 4 MG PO (09:29)
[2025-02-09] MEDS: PROCARDIA XL (EXTENDED RELEASE) 60 MG PO (09:29)
[2025-02-09] MEDS: PROTONIX 40 MG PO (09:29)
[2025-02-09] MEDS: LIDOCAINE 4% PATCH 1 PATCH TOPICAL (09:29)
[2025-02-09] MEDS: HEPARIN 5000 UNITS SC (09:31)
[2025-02-09] MEDS: SOLU-CORTEF 50 MG IV (09:41)
--- NOTE | 2025-02-09 10:10 | W.PN.ID1 ---
Date of Service
Date of Service: February 09, 2025
Today's Communication
Continue antibiotics. See below�
Assessment / Plan
Enterobacter bacteremia
- source unclear. ?Biliary ?urinary
Fevers
Chills
Thrombocytopenia
Immunocompromised secondary to meds
Hx renal transplant
ESRD 2*polycystic kidney disease; s/p transplant
CVA (ruptured brain aneurysm; 2005)
CAD
HLD
Anxiety
Recommendations:
Continue with empiric cefepime.
Creatinine clearance is normal; no need for dose reduction.
Await final identification and susceptibilities to guide further antimicrobial selection and de-escalation.
Monitor white count and temperature curve. Repeat blood cultures for temperature greater than 101 degrees.
����������������������������������������������������������
Chief Complaint
-: Bacteremia
Subjective / Review of Systems
Patient seen and examined. Reports feeling improved today. Denies pain. Denies abdominal discomfort. Notes no diarrhea.
Vital Signs / Physical Exam
Vital Signs
Vital Signs
Temp Pulse Resp BP Pulse Ox
97.9 F 56 20 122/59 99
02/09/25 07:00 02/09/25 07:00 02/09/25 07:00 02/09/25 07:00 02/09/25 07:00
Physical Exam
Constitutional: No Acute Distress, Comfortable and Non-toxic
Eyes: No Conjunctival Hemorrhage and Sclera Anicteric
Cardiovascular: S1/S2; Negative S3/S4
Pulmonary: Non Labored
Gastrointestinal: Soft, Non Tender, Non Distended and Other (No tenderness over transplant.)
Skin: Warm and Dry; Negative Rash or Jaundice
Neurological: Awake, Alert and Other
Objective Data
Lab Data
Lab Results
02/09/25 08:31
02/09/25 08:31
Estimated Creat Clear 114 ml/min 02/09/25 08:31
Lactic Acid Cancelled 02/07/25 18:30
Total Bilirubin 2.5 mg/dl (0.2-1.3) H 02/08/25 06:32
AST 25 U/L (17-59) 02/08/25 06:32
ALT 24 U/L (0-50) 02/08/25 06:32
Alkaline Phosphatase 34 U/L (38-126) L 02/08/25 06:32
Most recent labs reviewed.
Micro Results:
02/07/25 14:37 Blood Culture - Preliminary
Blood/Venous Enterobacter cloacae complex
Gram Stain - Preliminary
02/07/25 21:07 MRSA Screen - Final
Nose No Methicillin Resistant Staphylococcus aureus isolated.
02/07/25 14:37 Blood Culture - Preliminary
Blood/Venous No Growth in 24 hours- Final report to follow
02/07/25 22:23 Blood Parasites Smear - Final
Blood/Venous
02/07/25 15:14 Urine Culture - Final
Urine No Significant Growth
02/08/25 06:32 Cytomegalovirus Culture - Pending
Blood/Venous
02/07/25 14:53 Influenza Types A & B (NELLY) - Final
Nasal Swab Negative for Influenza A & B, NAAT
Negative results must be combined with clinical observations
and patient history.
Nucleic Acid Amplification test (NAAT)performed on the
[employer] platform.
Imaging:
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 Mild distention of the renal pelvis without caliectasis or evidence to suggest obstructive uropathy. Ureter is normal in caliber. No perinephric soft tissue stranding or
perinephric fluid collection. Relatively homogeneous nephrogram. Small midpole cyst measuring 10 mm. Additional subcentimeter cyst at the anteromedial and medial margins. No ascites or focal collection/abscess. No inflammatory soft tissue
stranding. Unremarkable urinary bladder. No adenopathy.
--- NOTE | 2025-02-09 11:13 | CM ---
Patient seen at bedside with Cathie
cont antibiotics
PLAN: Home, no needs anticipated, CM will continue to follow
--- NOTE | 2025-02-09 11:37 | W.PN.HOSP.TC ---
Today's Communication/Plan
-
follow nephrology/ID recs
continue IV abx
Assessment / Plan
Assessment / Plan
Assessment:
Enterobacter bacteremia
Immunocompromised patient (renal transplant, prednisone therapy, tacrolimus therapy)
- unclear source, but could be related to skin changes with possible vasculitis
- Urine culture negative
- CT chest/abdomen/pelvis with PO/IV contrast without overt evidence of infection
- follow cultures, tickborne illness testing
- continue empiric Cefepime
- ID following
Acute back pain
- no fall/trauma, no alarm signs
- L spine CT without acute pathology
- prn Tylenol
Acute Thrombocytopenia
- likely reactive to sepsis
- monitor counts
ESRD s/p renal transplant 2014
- s/p stress dose steroids. Resume PO Prednisone
- continue Tacro and check levels
- Nephrology consulted
- IVF prophylaxis with contrast; repeat BMP with stable normal renal function
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
- diagnosed in ER 4 days after telephone consultation with rheumatology
- s/p 4 day prednisone course - with improvement
- holding steroids due to bacteremia
- OP Rheum f/u
CAD s/p stent
- continue aspirin
Hyperlipidemia
- continue atorvastatin
Essential Hypertension
- continue nifedipine
GERD
- continue Omeprazole
Hypokalemia
DVT ppx: SC Heparin
Code: Full
Anticipated Discharge: > 48 hours
Subjective/Interval History
-
Date of Service: February 09, 2025
resting comfortably
back pain improved
slightly lightheaded
Objective Data
-
Labs:
Laboratory Results
02/09/25 02/09/25
08:19 08:31
WBC Cancelled 7.0
Hgb Cancelled 14.7
Hct Cancelled 42.9
Plt Count Cancelled 71 L
Sodium Cancelled 139
Potassium Cancelled 4.0
Chloride Cancelled 110 H
Carbon Dioxide Cancelled 23
BUN Cancelled 18
Creatinine Cancelled 0.9
Glucose Cancelled 163 H
Calcium Cancelled 8.6
Vital Signs:
Vital Signs
Temp Pulse Resp BP Pulse Ox
97.9 F 56 20 122/59 99
02/09/25 07:00 02/09/25 07:00 02/09/25 07:00 02/09/25 07:00 02/09/25 07:00
I&O
02/08/25 02/09/25 02/10/25
06:59 06:59 06:59
Intake Total 3260 / 3260
Output Total 450 / 450 3150 / 3150
Balance -450 / -450 110 / 110
Physical Exam
-
General: No Apparent Distress
HEENT: Normocephalic and Atraumatic
Respiratory: Negative Wheezes
Cardiac: Regular Rhythm and S1/S2
GI: Soft
Neuro: AO x 3
Psych: Calm
Data Reviewed
-
Total Time Spent with Patient (in minutes): 42
Labs: Labs Reviewed by me
[2025-02-09] MEDS: TYLENOL 650 MG PO ×2 (12:26→21:26)
--- NOTE | 2025-02-09 12:40 | W.CON.NEPH ---
Consultation
-
Date/Time Consultation Requested: February 08, 2025 at 3 PM
Date/Time Consultation Performed: February 09, 2025 at 10 AM
Requesting Provider: Melody Becker
Performing Provider: Dr. Nation
Reason for Consultation: Chronic kidney disease and kidney transplant management
Medical History
-
Chief Complaint: Transplant management
History of Present Illness:
65-year-old male with history of end-stage renal disease status post kidney transplant in 2014 presents the emergency department for evaluation of a fever for the past day. Patient was seen in this emergency department 4 days ago for a vasculitic
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
course of 60 mg of prednisone. He completed this yesterday. He reports general malaise and fatigue as well as body aches, denies chest pain, shortness of breath, nausea, vomiting, or neck pain.
Renal consult for chronic kidney disease and renal transplant history with the need for CAT scan IV contrast.
Past Medical History
End-stage renal disease status post kidney transplant in 2014 polycystic kidney disease
Social History
Tobacco: Non-Smoker
Alcohol: None
Family History
Polycystic kidney disease
Allergies / Home Medications
Allergy/AdvReac Type Severity Reaction Status Date / Time
No Known Allergies Allergy Verified 02/07/25 20:09
�Medication �Instructions �Recorded �Confirmed �Type
aspirin 81 mg tablet,delayed 81 mg PO DAILY Blood Clot 02/07/25 02/07/25 History
release Prevention/Tx
atorvastatin 20 mg tablet (Lipitor) 20 mg PO QPM High Cholesterol 02/07/25 02/07/25 History
cholecalciferol (vitamin D3) 125 125 mcg PO DAILY Supplement 02/07/25 02/07/25 History
mcg (5,000 unit) tablet (Vitamin
D3)
nifedipine 60 mg tablet,extended 60 mg PO DAILY Blood Pressure 02/07/25 02/07/25 History
release 24 hr
omega 9-piv-iii-fish oil 1,000 mg 1 cap PO QID Supplement 02/07/25 02/07/25 History
(120 mg-180 mg) capsule (Fish Oil)
omeprazole 20 mg capsule,delayed 20 mg PO DAILY Gastrointestinal 02/07/25 02/07/25 History
release Issue
prednisone 5 mg tablet 5 mg PO DAILY Anti-Inflammatory 02/07/25 02/07/25 History
tacrolimus 1 mg capsule, 3 mg PO QPM Transplant 02/07/25 02/07/25 History
immediate-release (Prograf)
tacrolimus 1 mg capsule, 4 mg PO DAILY Transplant 02/07/25 02/07/25 History
immediate-release (Prograf)
therapeutic multivitamin 1 tab PO DAILY Supplement 02/07/25 02/07/25 History
Review of Systems
-
No chest pain or shortness of breath urinating is increased though still dark in color
All other systems: Negative unless noted
Physical Exam
Vital Signs
Vital Signs
Temp Pulse Resp BP Pulse Ox
97.9 F 56 20 122/59 99
02/09/25 07:00 02/09/25 07:00 02/09/25 07:00 02/09/25 07:00 02/09/25 07:00
Lab Results
WBC 7.0 10^3/uL (4.8-10.8) 02/09/25 08:31
RBC 4.85 10^6/uL (4.70-6.10) 02/09/25 08:31
Hgb 14.7 g/dL (13.0-18.0) 02/09/25 08:31
Hct 42.9 % (39.0-52.0) 02/09/25 08:31
Plt Count 71 10^3/uL (130-400) L 02/09/25 08:31
Sodium 139 mmol/L (135-145) 02/09/25 08:31
Potassium 4.0 mmol/L (3.5-5.1) 02/09/25 08:
Chloride 110 mmol/L (98-107) H 02/09/25 08:31
Carbon Dioxide 23 mmol/L (22-30) 02/09/25 08:
BUN 18 mg/dl (9-20) 02/09/25 08:
Creatinine 0.9 mg/dL (0.7-1.3) 02/09/25 08:
eGFR > 60.00 02/09/25 08:
Glucose 163 mg/dl (70-99) H 02/09/25 08:
Calcium 8.6 mg/dl (8.4-10.2) 02/09/25 08:
Albumin 3.5 g/dl (3.5-5.0) 02/08/25 06:32
Physical Exam
General no acute distress
HEENT no cephalic atraumatic extraocular muscle intact no scleral icterus no JVD neck supple
lungs clear to auscultation bilateral
heart regular S1-S2 positive
abdomen soft nontender positive bowel sounds
extremities no edema pulses present bilateral
Neurologically nonfocal alert and oriented x 3
Skin no lesions no abrasions no petechiae
Psych normal affect no bizarre behavior
Data Reviewed
-
CT Scan: Image Personally Visualized and interpreted
Labs: Labs Reviewed by me, Discussed with Physician and Discussed with Patient
Assessment/Plan
-
65-year-old male with history of end-stage renal disease status post kidney transplant in 2014 presents the emergency department for evaluation of a fever for the past day. Patient was seen in this emergency department 4 days ago for a vasculitic
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
course of 60 mg of prednisone. He completed this yesterday.
Renal consult for chronic kidney disease and renal transplant history with the need for CAT scan IV contrast.
Impression.
Chronic kidney disease status post renal transplant creatinine stable 0.9.
Bacteremia Enterococcus.
Polycystic kidney disease.
Hypertension.
Plan.
Continue immunosuppressive therapy= tacrolimus level pending
Antibiotics.
Infectious disease consult noted.
Concern for vasculitis = no renal manifestations as urine shows no inflammatory process only 3-6 red blood cells
With bacteremia patient is stable from a hemodynamic standpoint so no indication at this time to stop any immunosuppressive therapy
Echocardiogram reviewed no evidence of vegetation
Okay to discontinue IV fluids
--- NOTE | 2025-02-09 14:22 | PTCARENOTE ---
pt reports back pain improved, slightly lightheaded with increased activity. tolerating diet, vss, independent in room, will continue to monitor.
[2025-02-09 15:00] VITALS: BP 118/70
[2025-02-09] MEDS: LIPITOR 20 MG PO (17:03)
[2025-02-09] MEDS: PROGRAF 3 MG PO (17:06)
--- NOTE | 2025-02-09 17:53 | PTCARENOTE ---
at 1226, patient medicated with PRN Tylenol for c/o mild back pain with good relief (see MAR), will continue to monitor.
[2025-02-09] MEDS: REMOVE LIDOCAINE PATCH 1 PATCH REMOVE (21:09)
[2025-02-09 23:44] VITALS: BP 130/75
[2025-02-09] MEDS: MELATONIN 10 MG PO (23:54)
[2025-02-10 02:46] LABS: EBV-EA (D) Ab IgG 99.4 U/mL (<=8.9); EBV-NA IgG 96.4 U/mL (<=17.9); EBV-VCA IgG Antibodies 627.0 U/mL (<=17.9); EBV-VCA IgM Antibodies <10.0 U/mL (<=35.9)
[2025-02-10] MEDS: STERILE WATER FOR INJECTION 10 ML IV ×4 (04:37→22:16)
[2025-02-10] MEDS: MAXIPIME 1000 MG IV ×4 (04:37→22:15)
[2025-02-10 07:44] VITALS: BP 138/70
[2025-02-10] MEDS: LIDOCAINE 4% PATCH 1 PATCH TOPICAL (08:29)
[2025-02-10] MEDS: DELTASONE 5 MG PO (08:30)
[2025-02-10] MEDS: ASPIR LOW (ENTERIC COATED) 81 MG PO (08:30)
[2025-02-10] MEDS: PROCARDIA XL (EXTENDED RELEASE) 60 MG PO (08:30)
[2025-02-10] MEDS: PROGRAF 4 MG PO (08:30)
[2025-02-10] MEDS: THERAGRAN 1 TABLET PO (08:31)
[2025-02-10] MEDS: PROTONIX 40 MG PO (08:31)
[2025-02-10 09:08] LABS: Hematocrit 40.9 % (39.0-52.0); Hemoglobin 13.9 g/dL (13.0-18.0); Mean Corp Hgb Conc. 34.0 g/dL (33.0-37.0); Mean Corpuscular Volume 88.9 fL (80.0-94.0); Platelet Count 73 10^3/uL (130-400); Red Cell Dist. Width 13.5 % (11.5-14.5)
[2025-02-10 09:37] LABS: Blood Urea Nitrogen 15 mg/dl (9-20); Calcium 8.4 mg/dl (8.4-10.2); Carbon Dioxide 24 mmol/L (22-30); Chloride 111 mmol/L (98-107); Estimated Creatinine Clearance > 125 ml/min; Glucose 112 mg/dl (70-99); Potassium 3.6 mmol/L (3.5-5.1); Sodium 140 mmol/L (135-145); eGFR > 60.00
[2025-02-10] MEDS: FLUSH (NSS) 2 FLUSH IV ×2 (10:15→16:22)
[2025-02-10 10:18] VITALS: BP 135/69; PULSE 67; O2SAT 98
[2025-02-10 10:20] VITALS: BP 135/69; PULSE 62; O2SAT 99
--- NOTE | 2025-02-10 11:36 | W.PN.NEPH.PH ---
Today's Communication / Plan
-
follow pending Tac level
Assessment/Plan
-
65-year-old male with history of end-stage renal disease status post kidney transplant in 2014 presents the emergency department for evaluation of a fever for the past day. Patient was seen in this emergency department 4 days ago for a vasculitic
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
course of 60 mg of prednisone. He completed this yesterday.
Renal consult for chronic kidney disease and renal transplant history with the need for CAT scan IV contrast.
Impression.
Chronic kidney disease status post renal transplant creatinine stable 0.9.
Bacteremia Enterococcus.
Polycystic kidney disease.
Hypertension.
Plan.
normal kidney function post contrast 02/08
Continue immunosuppressive therapy= tacrolimus level pending
Antibiotics per ID
Concern for vasculitis showed reviewed no evidence of vegetation
will s/o, call with ?
d/w primary
-
-
Date of Service: February 10, 2025
CC / HPI / ROS
-
Chief Complaint:
s/p KTP
History of Present Illness:
cr stable a0.8
Bp stable, no fever
Review of Systems:
no cp or sob
no n/v
Labs
-
Labs:
WBC 6.0 10^3/uL (4.8-10.8) 02/10/25 07:09
RBC 4.60 10^6/uL (4.70-6.10) L 02/10/25 07:09
Hgb 13.9 g/dL (13.0-18.0) 02/10/25 07:09
Hct 40.9 % (39.0-52.0) 02/10/25 07:09
Plt Count 73 10^3/uL (130-400) L 02/10/25 07:09
Sodium 140 mmol/L (135-145) 02/10/25 07:09
Potassium 3.6 mmol/L (3.5-5.1) 02/10/25 07:09
Chloride 111 mmol/L (98-107) H 02/10/25 07:09
Carbon Dioxide 24 mmol/L (22-30) 02/10/25 07:09
BUN 15 mg/dl (9-20) 02/10/25 07:09
Creatinine 0.8 mg/dL (0.7-1.3) 02/10/25 07:09
eGFR > 60.00 02/10/25 07:09
Glucose 112 mg/dl (70-99) H 02/10/25 07:09
Calcium 8.4 mg/dl (8.4-10.2) 02/10/25 07:09
Albumin 3.5 g/dl (3.5-5.0) 02/08/25 06:32
Physical Exam
-
Vital Signs:
Vital Signs
Temp Pulse Resp BP Pulse Ox
99.4 F 56 22 138/70 97
02/10/25 07:44 02/10/25 07:44 02/10/25 07:44 02/10/25 08:30 02/10/25 07:44
Cardiovascular:: Regular rate and rhythm
Respiratory:: Bilateral: CTA
Lung Excursion:: Normal
Abdomen:: Nontender and Soft
Extremity Edema:: None: Bilateral: (trace)
Larry Catheter: No
--- NOTE | 2025-02-10 13:54 | W.PN.HOSP.TC ---
Today's Communication/Plan
-
await ID recs re: transitional to oral/duration of Abx
Assessment / Plan
Assessment / Plan
Assessment:
Enterobacter bacteremia
Immunocompromised patient (renal transplant, prednisone therapy, tacrolimus therapy)
- unclear source, but could be related to skin changes with possible vasculitis
- Urine culture negative
- CT chest/abdomen/pelvis with PO/IV contrast without overt evidence of infection
- follow cultures, tickborne illness testing
- continue Cefepime
- ID following
Acute back pain
- no fall/trauma, no alarm signs
- L spine CT without acute pathology
- prn Tylenol
Acute Thrombocytopenia
- likely reactive to sepsis
- monitor counts
ESRD s/p renal transplant 2014
- s/p stress dose steroids. Resume PO Prednisone
- continue Tacro and check levels
- Nephrology signed off
- BMP shows stable normal renal function
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
- diagnosed in ER 4 days after telephone consultation with rheumatology
- s/p 4 day prednisone course - with improvement
- holding steroids due to bacteremia
- OP Rheum f/u
CAD s/p stent
- continue aspirin
Hyperlipidemia
- continue atorvastatin
Essential Hypertension
- continue nifedipine
GERD
- continue Omeprazole
Hypokalemia
DVT ppx: SC Heparin
Code: Full
Anticipated Discharge: Within 24 hours
Subjective/Interval History
-
Date of Service: February 10, 2025
denies any complaints at present
Objective Data
-
Labs:
Laboratory Results
02/10/25
07:09
WBC 6.0
Hgb 13.9
Hct 40.9
Plt Count 73 L
Sodium 140
Potassium 3.6
Chloride 111 H
Carbon Dioxide 24
BUN 15
Creatinine 0.8
Glucose 112 H
Calcium 8.4
Vital Signs:
Vital Signs
Temp Pulse Resp BP Pulse Ox
99.4 F 56 22 138/70 97
02/10/25 07:44 02/10/25 07:44 02/10/25 07:44 02/10/25 08:30 02/10/25 07:44
I&O
02/09/25 02/10/25 02/11/25
06:59 06:59 06:59
Intake Total 3260 / 3260 720 / 720
Output Total 3150 / 3150 600 / 600
Balance 110 / 110 120 / 120
Physical Exam
-
General: No Apparent Distress
HEENT: Normocephalic and Atraumatic
Respiratory: Negative Wheezes
Cardiac: Regular Rhythm and S1/S2
GI: Soft and Nontender
Genito-urinary: No Costovertebral Tender
Neuro: AO x 3
Psych: Calm
Data Reviewed
-
Total Time Spent with Patient (in minutes): 42
Labs: Labs Reviewed by me
--- NOTE | 2025-02-10 14:20 | W.PN.ID1 ---
Date of Service
Date of Service: February 10, 2025
Today's Communication
Continue with cefepime (d4)
At time of discharge, transition to cipro 500mg po bid through 02/20/25.
Check QTc
Assessment / Plan
Enterobacter bacteremia 1 of 2 sets
- source unclear.
Fevers - resolved
Thrombocytopenia
Immunocompromised secondary to meds
Hx renal transplant
ESRD 2*polycystic kidney disease; s/p transplant
CVA (ruptured brain aneurysm; 2005)
CAD
HLD
Anxiety
Recommendations:
CT chest/A/P without source of bacteremia.
Ucx no significant growth
TTE: no vege
Continue with cefepime (d4)
At time of discharge, transition to cipro 500mg po bid through 02/20/25.
Check QTc
����������������������������������������������������������
Chief Complaint
-: Bacteremia
Vital Signs / Physical Exam
Vital Signs
Vital Signs
Temp Pulse Resp BP Pulse Ox
99.4 F 56 22 138/70 97
02/10/25 07:44 02/10/25 07:44 02/10/25 07:44 02/10/25 08:30 02/10/25 07:44
Physical Exam
Constitutional: No Acute Distress, Comfortable and Non-toxic
Eyes: No Conjunctival Hemorrhage and Sclera Anicteric
Cardiovascular: S1/S2; Negative S3/S4
Pulmonary: Non Labored
Gastrointestinal: Soft, Non Tender, Non Distended and Other (No tenderness over transplant.)
Skin: Warm and Dry; Negative Rash or Jaundice
Neurological: Awake, Alert and Other
Objective Data
Lab Data
Lab Results
02/10/25 07:09
02/10/25 07:09
Estimated Creat Clear > 125 ml/min 02/10/25 07:09
Lactic Acid Cancelled 02/07/25 18:30
Total Bilirubin 2.5 mg/dl (0.2-1.3) H 02/08/25 06:32
AST 25 U/L (17-59) 02/08/25 06:32
ALT 24 U/L (0-50) 02/08/25 06:32
Alkaline Phosphatase 34 U/L (38-126) L 02/08/25 06:32
Most recent labs reviewed.
Micro Results:
02/07/25 14:37 Blood Culture - Preliminary
Blood/Venous Enterobacter cloacae
Gram Stain - Preliminary
02/08/25 06:32 Cytomegalovirus Culture - Preliminary
Blood/Venous
02/07/25 14:37 Blood Culture - Preliminary
Blood/Venous No Growth in 48 hours- Final report to follow
02/07/25 21:07 MRSA Screen - Final
Nose No Methicillin Resistant Staphylococcus aureus isolated.
02/07/25 22:23 Blood Parasites Smear - Final
Blood/Venous
02/07/25 15:14 Urine Culture - Final
Urine No Significant Growth
02/07/25 14:53 Influenza Types A & B (NELLY) - Final
Nasal Swab Negative for Influenza A & B, NAAT
Negative results must be combined with clinical observations
and patient history.
Nucleic Acid Amplification test (NAAT)performed on the
[employer] platform.
Imaging:
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 Mild distention of the renal pelvis without caliectasis or evidence to suggest obstructive uropathy. Ureter is normal in caliber. No perinephric soft tissue stranding or
perinephric fluid collection. Relatively homogeneous nephrogram. Small midpole cyst measuring 10 mm. Additional subcentimeter cyst at the anteromedial and medial margins. No ascites or focal collection/abscess. No inflammatory soft tissue
stranding. Unremarkable urinary bladder. No adenopathy.
[2025-02-10 16:08] VITALS: BP 108/68
[2025-02-10] MEDS: LIPITOR 20 MG PO (16:32)
[2025-02-10] MEDS: PROGRAF 3 MG PO (16:32)
[2025-02-10] MEDS: REMOVE LIDOCAINE PATCH 1 PATCH REMOVE (19:32)
[2025-02-10] MEDS: AMBIEN 5 MG PO (22:15)
[2025-02-10 23:14] VITALS: BP 151/80
[2025-02-11] MEDS: MAXIPIME 1000 MG IV (03:54)
[2025-02-11] MEDS: STERILE WATER FOR INJECTION 10 ML IV (03:54)
[2025-02-11 06:00] VITALS: BMI 35.0
[2025-02-11 06:46] LABS: Hematocrit 42.2 % (39.0-52.0); Hemoglobin 14.3 g/dL (13.0-18.0); Mean Corp Hgb Conc. 33.9 g/dL (33.0-37.0); Mean Corpuscular Volume 88.8 fL (80.0-94.0); Platelet Count 92 10^3/uL (130-400); Red Cell Dist. Width 13.5 % (11.5-14.5)
[2025-02-11 06:58] LABS: Blood Urea Nitrogen 12 mg/dl (9-20); Calcium 8.6 mg/dl (8.4-10.2); Carbon Dioxide 24 mmol/L (22-30); Chloride 111 mmol/L (98-107); Estimated Creatinine Clearance > 125 ml/min; Glucose 112 mg/dl (70-99); Potassium 3.8 mmol/L (3.5-5.1); Sodium 142 mmol/L (135-145); eGFR > 60.00
[2025-02-11 07:34] VITALS: BP 141/79
[2025-02-11 07:38] LABS: Glucose - Point of Care 111 mg/dl (70-99)
[2025-02-11] MEDS: ASPIR LOW (ENTERIC COATED) 81 MG PO (07:39)
[2025-02-11] MEDS: LIDOCAINE 4% PATCH 1 PATCH TOPICAL (07:39)
[2025-02-11] MEDS: THERAGRAN 1 TABLET PO (07:40)
[2025-02-11] MEDS: PROTONIX 40 MG PO (07:40)
[2025-02-11] MEDS: PROCARDIA XL (EXTENDED RELEASE) 60 MG PO (07:40)
[2025-02-11] MEDS: PROGRAF 4 MG PO (07:40)
[2025-02-11] MEDS: DELTASONE 5 MG PO (09:07)
[2025-02-11] MEDS: CIPRO 500 MG PO (09:07)
--- NOTE | 2025-02-11 11:11 | W.PN.HOSP.TC ---
Today's Communication/Plan
-
dc to home later today
Assessment / Plan
Assessment / Plan
Assessment:
Enterobacter bacteremia
Immunocompromised patient (renal transplant, prednisone therapy, tacrolimus therapy)
- unclear source, but could be related to skin changes with possible vasculitis
- Urine culture negative
- CT chest/abdomen/pelvis with PO/IV contrast without overt evidence of infection
- follow cultures, tickborne illness testing
- ID following
- for DC today: cipro 500mg po bid through 02/20/25 will continue. QTc 424
Acute back pain
- no fall/trauma, no alarm signs
- L spine CT without acute pathology
- prn Tylenol
Acute Thrombocytopenia
- likely reactive to sepsis
- monitor counts; improving
ESRD s/p renal transplant 2014
- s/p stress dose steroids. Resume PO Prednisone 5mg daily
- continue Tacro and check levels
- Nephrology signed off
- BMP shows stable normal renal function
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
- diagnosed in ER 4 days after telephone consultation with rheumatology
- s/p 4 day prednisone course - with improvement
- holding steroids due to bacteremia
- OP Rheum f/u
CAD s/p stent
- continue aspirin
Hyperlipidemia
- continue atorvastatin
Essential Hypertension
- continue nifedipine
GERD
- continue Omeprazole
Hypokalemia
DVT ppx: SC Heparin
Code: Full
More than 30 minutes spent in discharge including
Final examination of the patient
Summarizing hospital stay
Instructions for continuing care to all relevant caregivers
Preparation of discharge records, prescriptions, and referral forms
Total time spent (in minutes): 41
Anticipated Discharge: Today
Subjective/Interval History
-
Date of Service: February 11, 2025
resting comfortably, no complaints
no issues with oral cipro - received this AM
Objective Data
-
Labs:
Laboratory Results
02/11/25
06:06
WBC 5.8
Hgb 14.3
Hct 42.2
Plt Count 92 L D
Sodium 142
Potassium 3.8
Chloride 111 H
Carbon Dioxide 24
BUN 12
Creatinine 0.8
Glucose 112 H
Calcium 8.6
Vital Signs:
Vital Signs
Temp Pulse Resp BP Pulse Ox
99.3 F 55 21 141/79 96
02/11/25 07:34 02/11/25 07:34 02/11/25 07:34 02/11/25 07:40 02/11/25 07:34
I&O
02/10/25 02/11/25 02/12/25
06:59 06:59 06:59
Intake Total 720 / 720 3120 / 3120
Output Total 600 / 600
Balance 120 / 120 3120 / 3120
Physical Exam
-
General: No Apparent Distress
HEENT: Normocephalic and Atraumatic
Respiratory: Negative Wheezes
Cardiac: Regular Rhythm and S1/S2
GI: Soft
Musculoskeletal: No Edema
Neuro: AO x 3
Hematologic / Lymphatic: No Lymphadenopathy
Psych: Calm
Data Reviewed
-
Total Time Spent with Patient (in minutes): 44
Labs: Labs Reviewed by me
--- NOTE | 2025-02-11 11:15 | W.DCSUMMARY ---
Discharge Summary
Discharge Data
Date of Admission: 02/07/25
Date of Discharge: 02/11/25
-
Pending Results: No
Hospital Course
65 y/o M hx of renal transplant on prednisone and tacrolimus, who presented on 02/02 to ER with bilateral LE rash (presumed diagnosis of leukocytoclastic vasculitis and improved on high dose oral prednisone) presented back to on 02/07 with
fever/chills and low back pain. Temp was 103.9. Patient was found to have Enterobacter bacteremia. Workup including Echo and CT Chest/Abdomen/Pelvis did not reveal a source of bacteremia. He was started on Cefepime and transitioned to Cipro to
complete a course through 02/20 per Infectious disease. He renal function was normal and stable through hospitalization and he received IVF prophylaxis for IV contrast during his CT scans - Nephrology was following. He was discharged home on 02/11 in
stable condition. He will follow up with PCP and also with rheumatology given presumed diagnosis of leukocytoclastic vasculitis.
Discharge Plan
-
Patient Disposition: Home (Routine Discharge)
Discharge Diagnosis/Procedures: Enterobacter bacteremia, recent diagnosis of leukocytoclastic vasculitis
Condition: Fair
Diet: Regular
Activity: As tolerated
Bathing Restrictions: None
Referrals:
Rik Fernandez DO [Consulting Staff, Rheumatology]
Referral Note: call this office to reschedule rheumatological evaluation of leg rashes
Vikas Ramirez MD [Family Provider, Internal Medicine] - in one week
Prescriptions:
New
ciprofloxacin HCl 500 mg Tablet
500 mg PO BID Qty: 19 0RF
Continued
atorvastatin [Lipitor] 20 mg Tablet
20 mg PO QPM
prednisone 5 mg Tablet
5 mg PO DAILY
therapeutic multivitamin Tablet
1 tab PO DAILY
aspirin 81 mg Tablet,Delayed Release (Dr/Ec)
81 mg PO DAILY
nifedipine 60 mg Tablet Extended Release 24hr
60 mg PO DAILY
omeprazole 20 mg Capsule,Delayed Release(Dr/Ec)
20 mg PO DAILY
tacrolimus [Prograf] 1 mg Capsule
4 mg PO DAILY
tacrolimus [Prograf] 1 mg Capsule
3 mg PO QPM
cholecalciferol (vitamin D3) [Vitamin D3] 125 mcg (5,000 unit) Tablet
125 mcg PO DAILY
omega 1-xif-wbw-fish oil [Fish Oil] 1,000 (120-180) mg Capsule
1 cap PO QID
Rx Instructions:
1620mg qid
melatonin 10 mg Tablet
10 mg PO HS PRN (Reason: sleep)
Discharge Orders:
Discharge Patient (As Directed); Ordered 02/11/25
Ordered By: Melody Becker
Discharge Date and Time
Discharge Date/Time: 02/11/25 12:58
Print Language: HEBREW
--- NOTE | 2025-02-11 11:21 | W.PN.ID1 ---
Date of Service
Date of Service: February 11, 2025
Today's Communication
Can transition cefepime (d5) to cipro 500mg po bid through 02/20/25.
Assessment / Plan
Enterobacter bacteremia 1 of 2 sets
- source unclear.
Fevers - resolved
Thrombocytopenia
Immunocompromised secondary to meds
Hx renal transplant
ESRD 2*polycystic kidney disease; s/p transplant
CVA (ruptured brain aneurysm; 2005)
CAD
HLD
Anxiety
Recommendations:
CT chest/A/P without source of bacteremia.
Ucx no significant growth
TTE: no vege
QTc 424
Can transition cefepime (d5) to cipro 500mg po bid through 02/20/25.
����������������������������������������������������������
Chief Complaint
-: Bacteremia
Subjective / Review of Systems
Feels well. No complaints today.
Vital Signs / Physical Exam
Vital Signs
Vital Signs
Temp Pulse Resp BP Pulse Ox
99.3 F 55 21 141/79 96
02/11/25 07:34 02/11/25 07:34 02/11/25 07:34 02/11/25 07:40 02/11/25 07:34
Physical Exam
Constitutional: No Acute Distress and Comfortable
Eyes: No Conjunctival Hemorrhage and Sclera Anicteric
Cardiovascular: Regular Rate and S1/S2
Pulmonary: Clear
Gastrointestinal: Soft, Non Tender and Non Distended
Genito-Urinary: Other (Nontender transplanted kidney)
Neurological: Awake, Alert and Other
Objective Data
Lab Data
Lab Results
02/11/25 06:06
02/11/25 06:06
Estimated Creat Clear > 125 ml/min 02/11/25 06:06
Lactic Acid Cancelled 02/07/25 18:30
Total Bilirubin 2.5 mg/dl (0.2-1.3) H 02/08/25 06:32
AST 25 U/L (17-59) 02/08/25 06:32
ALT 24 U/L (0-50) 02/08/25 06:32
Alkaline Phosphatase 34 U/L (38-126) L 02/08/25 06:32
Most recent labs reviewed.
Micro Results:
02/07/25 14:37 Blood Culture - Preliminary
Blood/Venous No Growth in 72 hours- Final report to follow
02/07/25 14:37 Blood Culture - Preliminary
Blood/Venous Enterobacter cloacae
Gram Stain - Preliminary
02/08/25 06:32 Cytomegalovirus Culture - Preliminary
Blood/Venous
02/07/25 21:07 MRSA Screen - Final
Nose No Methicillin Resistant Staphylococcus aureus isolated.
02/07/25 22:23 Blood Parasites Smear - Final
Blood/Venous
02/07/25 15:14 Urine Culture - Final
Urine No Significant Growth
02/07/25 14:53 Influenza Types A & B (NELLY) - Final
Nasal Swab Negative for Influenza A & B, NAAT
Negative results must be combined with clinical observations
and patient history.
Nucleic Acid Amplification test (NAAT)performed on the
[employer] platform.
Imaging:
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 Mild distention of the renal pelvis without caliectasis or evidence to suggest obstructive uropathy. Ureter is normal in caliber. No perinephric soft tissue stranding or
perinephric fluid collection. Relatively homogeneous nephrogram. Small midpole cyst measuring 10 mm. Additional subcentimeter cyst at the anteromedial and medial margins. No ascites or focal collection/abscess. No inflammatory soft tissue
stranding. Unremarkable urinary bladder. No adenopathy.
Care Review
Plan reviewed with: Physician (Dr. Joelle Becker)
[2025-02-11] MEDS: PREVNAR 20 0.5 ML IM (12:22)
[2025-02-12 02:05] LABS: Ehrlichia chaffeensis IgM Ab < 1:16 (< 1:16)
[2025-02-13 02:29] LABS: Anaplasma phagocytophilum IgM < 1:16 (< 1:16)
== END 2025-02-11 12:58 | disposition home or self-care (01) | DRG 871 ==
LOC: 3 WEST ACU 18:57
PROVIDERS: Physician Assistant; Student in an Organized Health Care Education/Training Program; ADMITTING PHYSICIAN Hospitalist; ATTENDING PHYSICIAN Internal Medicine; CONSULT PHYSICIAN Internal Medicine Infectious Disease; CONSULT PHYSICIAN Internal Medicine Nephrology; EMERGENCY PHYSICIAN Emergency Medicine; FAMILY PHYSICIAN Internal Medicine
DX: R78.81 Bacteremia (principal); N18.6 End stage renal disease; D84.821 Immunodeficiency due to drugs; M31.0 Hypersensitivity angiitis; Z94.0 Kidney transplant status; Q61.3 Polycystic kidney, unspecified; B96.89 Other specified bacterial agents as the cause of diseases classified elsewhere; D69.6 Thrombocytopenia, unspecified; Z79.621 Long term (current) use of calcineurin inhibitor; I10 Essential (primary) hypertension; F41.9 Anxiety disorder, unspecified; Z95.5 Presence of coronary angioplasty implant and graft; I25.10 Atherosclerotic heart disease of native coronary artery without angina pectoris; H91.92 Unspecified hearing loss, left ear; E78.00 Pure hypercholesterolemia, unspecified; Z11.52 Encounter for screening for COVID-19; K21.9 Gastro-esophageal reflux disease without esophagitis; Z79.82 Long term (current) use of aspirin
CPT/HCPCS: 71046; 71260; 74177; 80048; 80053; 80197; 81003; 81015; 82962; 83605; 83735; 85025; 85027; 86618; 86663; 86664; 86665; 86666; 87015; 87040; 87070; 87077; 87086; 87154; 87186; 87205; 87207; 87254; 87502; 87811; 90677; 93005; 93306; 96361; 96374; 97161; 97165; 99285; G0009; Q9967